=== PATIENT | female | born 1995 | race Caucasian/White ===

== ENCOUNTER 2022-04-18 20:49 | Emergency (ER) | payer OTHER ==
[~2022-04-18] VITALS: Ht 172.7 cm; Wt 59.0 kg
[2022-04-18 21:06] VITALS: BP 109/80
[2022-04-18] MEDS ORDERED: PHEN-1877 PO (23:01)
[2022-04-18] MEDS ORDERED: NITR100C7 PO (23:01)
[2022-04-18 23:23] VITALS: BP 109/80
== END 2022-04-18 23:18 | disposition home or self-care (01) ==
LOC: MED 20:49
DX: N39.0 Urinary tract infection, site not specified (principal); M54.50 Low back pain, unspecified
CPT/HCPCS: 81002; 81025; 99283

== ENCOUNTER 2022-09-26 17:55 | Emergency (ER) | payer OTHER ==
[~2022-09-26] VITALS: Ht 172.7 cm; Wt 60.8 kg
[~2022-09-26 17:55] MED LIST: NITR100C7 PO; PHEN-1877 PO
[2022-09-26 18:07] VITALS: BP 118/60
--- NOTE | 2022-09-26 19:30 | NUR ---
PT TO BED 07 AMBULATORY.
[2022-09-26] MEDS: FLUORESCEIN OPTH STRIP 1 MG OP ONE (19:43)
[2022-09-26] MEDS: TETRACAINE HCL/PF 0.5% OPTH 4 ML BTL OP ONE (19:44)
[2022-09-26] MEDS ORDERED: TOMOMETER 1 DEV DEV MC ONE (20:00)
--- NOTE | 2022-09-26 20:11 | NUR ---
DR OQUENDO AT BEDSIDE
[2022-09-26] MEDS ORDERED: VALA1TAB40 PO (20:13)
[2022-09-26] MEDS ORDERED: PRED20TA5 PO (20:13)
[2022-09-26] MEDS ORDERED: ACET-10509 PO (20:13)
--- NOTE | 2022-09-26 20:16 | NUR ---
27YR OLD FEMALE BIB SELF C/O R EYE PAIN. R EYE RED AND SOME SWELLING . NO DISCHARGE NOTED. PT IS A&OX4. DENIES ANY INJURY OR FB TO EYE. PT STATES OF HAVING HX OF SHINGLES IN EYE BEFORE. DR OQUENDO TO EXAM PT . MATILDA RAZO
[2022-09-26 20:20] VITALS: BP 118/60
--- NOTE | 2022-09-26 20:20 | NUR ---
Patient discharged with v/s stable. Written and verbal after care instructions given and explained. Patient alert, oriented and verbalized understanding of instructions. Ambulatory with steady gait. All questions addressed prior to discharge. ID band removed. Patient advised to follow up with PMD. Rx of prednisone, tyleno, valacyclovir given. Patient educated on indication of medication including possible reaction and side effects. Opportunity to ask questions provided and answered.
--- NOTE | 2022-09-26 21:08 | NUR ---
The patient's care was reviewed and supervised by Maame Smith RN, RN.
== END 2022-09-26 20:20 | disposition home or self-care (01) ==
LOC: MED 17:55
DX: Z79.899 Other long term (current) drug therapy (principal); Z79.2 Long term (current) use of antibiotics
CPT/HCPCS: 99283